=== PATIENT | female | born 1990 | race Caucasian/White ===

== ENCOUNTER 2018-08-02 02:32 | Emergency (ER) | payer BC ==
[~2018-08-02] VITALS: Ht 160 cm; Wt 49.9 kg
--- NOTE | 2018-08-02 02:42 | NUR ---
Dr. Hatch at bedside for MSE.
[2018-08-02] MEDS ORDERED: AZITHROMYCIN 250 MG TABLET PO ONE (02:45)
[2018-08-02] MEDS ORDERED: OXYCODONE/APAP 5-325 MG TABLET PO ONE (02:45)
[2018-08-02] MEDS ORDERED: OXYCODONE/APAP 5-325 MG TABLET ONE (02:48)
[2018-08-02] MEDS ORDERED: CLINDAMYCIN HCL 300 MG CAPSULE ONE (02:49)
--- NOTE | 2018-08-02 02:54 | NUR ---
Patient discharged to home in stable conditon. Written and verbal after care instructions given. Patient verbalizes understanding of instructions. Pt ambulated out of ER with steady gait, no acute signs of distress, VSS, all belongings taken.
[2018-08-02 02:55] VITALS: BP 122/92
[2018-08-02] MEDS ORDERED: CLINDAMYCIN HCL 150 MG CAPSULE PO ONE (03:00)
== END 2018-08-02 02:55 | disposition home or self-care (01) ==
LOC: ER 02:35
DX: K08.89 Other specified disorders of teeth and supporting structures (principal); Z88.0 Allergy status to penicillin
CPT/HCPCS: A4663